=== PATIENT | male | born 1985 | race American Indian/Alaskan Native ===

== ENCOUNTER 2016-11-29 21:49 | Emergency (ER) | payer MEDICAID ==
[2016-11-29 21:55] VITALS: BP 147/88
== END 2016-11-30 06:50 | disposition left against medical advice (07) ==
LOC: ED 21:49
DX: N48.89 Other specified disorders of penis (principal); M79.644 Pain in right finger(s); Z53.21 Procedure and treatment not carried out due to patient leaving prior to being seen by health care provider